=== PATIENT | female | born 1935 | race Caucasian/White ===

== ENCOUNTER → 2021-11-05 | Outpatient (CLI) | payer MEDICARE, OTHER ==
[2021-11-05 17:31] LABS: Protein, Urine Random 10.7 mg/dL (0.0-11.9); Protein/Creat Ratio, Ur Random 0.1
[2021-11-08 11:10] LABS: M-SPIKE, % 6.2 % (Not Observed); PROTEIN,TOTAL,URINE 8.6 mg/dL (Not Estab.)
== END | disposition home or self-care (01) ==
LOC: LAB SHORT 13:00
PROVIDERS: Internal Medicine Nephrology
DX: N18.31 Chronic kidney disease, stage 3a (principal)
CPT/HCPCS: 82570; 84156; 84166